=== PATIENT | female | born 1945 | race Caucasian/White ===

== ENCOUNTER → 2016-10-05 16:51 | Outpatient (CLI) | payer MEDICARE | END | disposition home or self-care (01) | LOC: D.MAMMO 08:30 | DX: R92.8 Other abnormal and inconclusive findings on diagnostic imaging of breast (principal) ==

== ENCOUNTER → 2017-01-11 08:08 | Outpatient (CLI) | payer MEDICARE | END | disposition home or self-care (01) | LOC: D.CT 08:08 | DX: J32.9 Chronic sinusitis, unspecified (principal) ==

== ENCOUNTER → 2017-04-25 16:48 | Outpatient (CLI) | payer MEDICARE | END | disposition home or self-care (01) | LOC: D.MAMMO 04-17 10:30 | DX: N60.01 Solitary cyst of right breast (principal) ==

== ENCOUNTER → 2017-10-31 19:21 | Outpatient (CLI) | payer MEDICARE ==
[~2017-10-31 19:21] MED LIST: ACETAMINOPHEN500 M1 PO; AMBIEN5 MG PO; CYCLOBENZAPRINE10 MG PO; FLAGYL500 MG PO; LEVSIN/ANASP0.125 MG SL; LIPITOR20 MG PO; LOTENSIN20 MG PO; MOBIC7.5 MG PO; NORVASC5 MG PO; OMEPRAZOLE20 M1 PO; PRINIVIL20 MG PO; ULTRAM50 MG PO
[2017-11-23 13:25] VITALS: BMI 27.3
== END | disposition home or self-care (01) ==
LOC: D.MAMMO 10-29 09:30 → D.US 10-29 10:30 → D.MAMMO 10:00
DX: R92.8 Other abnormal and inconclusive findings on diagnostic imaging of breast (principal)

== ENCOUNTER → 2017-11-16 13:59 | Outpatient (CLI) | payer MEDICARE ==
[2017-11-23 13:25] VITALS: BMI 27.3
== END | disposition home or self-care (01) ==
LOC: D.MRI 13:59
DX: M75.101 Unspecified rotator cuff tear or rupture of right shoulder, not specified as traumatic (principal)

== ENCOUNTER → 2017-12-17 16:36 | Outpatient (CLI) | payer MEDICARE ==
[2017-11-23 13:25] VITALS: BMI 27.3
[2017-12-17 16:56] LABS: BASOPHILS 0.4 % (0-2); HEMATOCRIT 34.4 % (36.0-48.0); HEMOGLOBIN 11.4 g/dL (12-16); LYMPHOCYTES 15.6 % (15-50); MCH 30.2 pg (26.0-34.0); MCHC 33.1 g/dL (31.0-37.0); MCV 91.2 fL (80.0-100.0); MEAN PLATELET VOLUME 9.5 fL (7.4-10.4); MONOCYTES 11.6 % (2-11); NEUTROPHILS 71.4 % (40-80); RBC 3.77 10x6/uL (4.00-5.40); RDW 13.6 % (11.5-14.5); WBC 4.9 10x3/uL (4.8-10.8)
[2017-12-17 17:26] LABS: % SATURATION 8 % (15-55); IRON 31 ug/dl (35-150); PLATELET COUNT 281 10x3/uL (130-400); TOTAL IRON BIND CAPACITY 347 ug/dl (260-445); UNSAT IRON BIND CAPACITY 316 ug/dl (150-375)
[2017-12-19 11:20] LABS: FOLATE (FOLIC ACID) - SERUM >20.0 ng/mL (>3.0)
== END | disposition home or self-care (01) ==
LOC: D.LABREF 16:36
PROVIDERS: Internal Medicine Gastroenterology
DX: R41.0 Disorientation, unspecified (principal); D64.9 Anemia, unspecified; Z86.010 Personal history of colon polyps; K58.9 Irritable bowel syndrome, unspecified; K92.2 Gastrointestinal hemorrhage, unspecified; K52.832 Lymphocytic colitis

== ENCOUNTER 2018-11-15 09:00 | Outpatient (CLI) | payer MEDICARE ==
[2017-11-23 13:25] VITALS: BMI 27.3
== END 2018-11-15 10:00 | disposition home or self-care (01) ==
LOC: D.MAMMO 09:00
PROVIDERS: ATTEND Family Medicine
DX: Z12.31 Encounter for screening mammogram for malignant neoplasm of breast (principal)

== ENCOUNTER → 2019-08-19 14:55 | Outpatient (CLI) | payer MEDICARE ==
[2017-11-23 13:25] VITALS: BMI 27.3
[2019-08-19 16:35] LABS: BASOPHILS 0.8 % (0-2); EOSINOPHILS 2.6 % (0-7); HEMATOCRIT 31.9 % (36.0-48.0); HEMOGLOBIN 10.1 g/dL (12-16); LYMPHOCYTES 18.3 % (15-50); MCH 25.8 pg (26.0-34.0); MCHC 31.7 g/dL (31.0-37.0); MCV 81.6 fL (80.0-100.0); MEAN PLATELET VOLUME 8.9 fL (7.4-10.4); NEUTROPHILS 67.3 % (40-80); PLATELET COUNT 311 10x3/uL (130-400); RBC 3.91 10x6/uL (4.00-5.40); RDW 16.2 % (11.5-14.5); WBC 6.6 10x3/uL (4.8-10.8)
== END | disposition home or self-care (01) ==
LOC: D.LABREF 14:55
PROVIDERS: ATTEND Internal Medicine Gastroenterology
DX: D64.9 Anemia, unspecified (principal); R19.5 Other fecal abnormalities

== ENCOUNTER → 2020-02-20 08:00 | Outpatient (CLI) | payer MEDICARE ==
[2017-11-23 13:25] VITALS: BMI 27.3
== END | disposition home or self-care (01) ==
LOC: D.MAMMO 08:00
PROVIDERS: ATTEND Family Medicine
DX: Z12.31 Encounter for screening mammogram for malignant neoplasm of breast (principal)